=== PATIENT | female | born 1935 | race Caucasian/White ===

== ENCOUNTER → 2016-07-10 | Outpatient (CLI) | payer OTHER | LOC: BHFA 14:15 | PROVIDERS: ATTEND Internal Medicine Cardiovascular Disease | DX: I48.91 Unspecified atrial fibrillation (principal); I49.1 Atrial premature depolarization ==

== ENCOUNTER 2016-07-17 10:15 | Day surgery (SDC) | payer OTHER ==
[2016-07-17] MEDS ORDERED: LIDOCAINE 1% 30 ML SDV ONE (11:05)
--- NOTE | 2016-07-20 17:14 | GPN ---
[f rep st] PROCEDURE NOTE DATE OF PROCEDURE: 07/17/2016 PROCEDURE PERFORMED: Implantable loop recorder. INDICATION FOR PROCEDURE: Syncope without prodrome, resulting in facial trauma. PROCEDURE: The patient is a pleasant 81-year-old female with a known history of non prodromal synco pe resulting in facial trauma. As a result, she presents to [facility] today for an elective outpatient procedure with a [employer] implantable loop recorder. After informed consent w as obtained, 5th intercostal space, 2 cm from midline, was marked for preparation. The patient was prepped and draped in a sterile fashion. Sterile gloves, gowns and masks were used throughout the c ourse of the procedure. Lidocaine 1% was used to anesthetize the local site. Using the provided Medtronic scalpel, an incis ion was made in the skin after a small pinch in the skin was held. This incision was modified with a scalpel blade. The [employer] implantable loop recorder was subsequently placed without complicati on. She tolerated the procedure well. Hemostasis was achieved. Steri-Strips were applied and a Te gaderm dressing was applied as well. Postoperatively, the device was interrogated and was functioning normally. She had no postoperative complications, and she was discharged home. PLAN: 1. Patient has been given postoperative instructions. 2. The patient is scheduled to follow up with us in the office next week for wound and device check . 3. All the patient's questions have been answered. /[id number]/MODL
== END 2016-07-17 12:40 | disposition home or self-care (01) ==
LOC: FCATH 10:15
PROVIDERS: ATTEND Internal Medicine Cardiovascular Disease
PROC: 0JH602Z Insertion of Monitoring Device into Chest Subcutaneous Tissue and Fascia, Open Approach (ICD-10-PCS; principal; 2016-07-17)
DX: R55 Syncope and collapse (principal); R53.83 Other fatigue; I49.1 Atrial premature depolarization; R94.31 Abnormal electrocardiogram [ECG] [EKG]; I10 Essential (primary) hypertension; I70.8 Atherosclerosis of other arteries; I27.2 Other secondary pulmonary hypertension; R68.89 Other general symptoms and signs; E11.9 Type 2 diabetes mellitus without complications; E78.5 Hyperlipidemia, unspecified; E55.9 Vitamin D deficiency, unspecified
CPT/HCPCS: C1764

== ENCOUNTER → 2016-08-12 | Outpatient (CLI) | payer OTHER | LOC: FCPNEURO 21:00 | PROVIDERS: ATTEND Psychiatry & Neurology Sleep Medicine | DX: G47.33 Obstructive sleep apnea (adult) (pediatric) (principal); G47.61 Periodic limb movement disorder ==